=== PATIENT | male | born 1935 | race Caucasian/White ===

== ENCOUNTER 2017-02-07 20:23 | Emergency (ER) | payer MEDICARE, OTHER ==
[2017-02-07] MEDS: ONDANSETRON HCL 4 MG TAB.RAPDIS PO PRN (21:13)
[2017-02-07] MEDS ORDERED: ONDANSETRON HCL 4 MG TAB.RAPDIS ONE ×2 (21:15→22:20)
[2017-02-07 21:33] LABS: BASOPHILS % 0.6 (0.0-1.5); MEAN CORPUSCULAR HEMOGLOBIN 28.2 pg (28.0-34.0); MEAN CORPUSCULAR VOLUME 83.9 fl (80.0-100.0); MONOCYTES % 4.9 % (0.0-11.0); NEUTROPHILS # 4.6 # k/uL (1.4-7.7)
[2017-02-07 21:46] LABS: eGFR (African) > 60; eGFR (Non-African) > 60
[2017-02-07] MEDS ORDERED: ONDANSETRON HCL 4 MG TAB.RAPDIS PO PRN (22:11)
--- NOTE | 2017-02-07 22:15 | ED Physician Documentation ---
Nausea/Vomiting/Diarrhea - HISTORIAN Historian: patient - HPI Chief Complaint: Nausea,Vomiting,Diarrhea Onset: other (last noc) Duration: constant Timing: still present Severity: moderate - Associated Symptoms Vomiting: mild (once) Diarrhea: denies: mild, mucous, watery, bloody Abdominal Pain: denies: cramping, burning - ROS CONST: none. denies: fever, chills - PAST HX Past History: peptic ulcer (has been stressed). denies: diabetes Type 2 Surgeries/Procedures: other (endcarotidectomy) Allergies/Adverse Reactions: Allergies Allergy/AdvReac Type Severity Reaction Status Date / Time No Known Allergies Allergy Verified 02/07/17 20:55 Home Medications: Ambulatory Orders Medication Instructions Recorded Finasteride [Proscar] 5 mg PO HS 06/06/15 Nitroglycerin 0.4 mg SL u2 06/12/15 Ondansetron HCl Rapdis [Zofran Odt] 4 mg PO Q6 PRN #10 tab 02/07/17 - SOCIAL HX Smoking History: non-smoker Alcohol Use: none Drug Use: none - FAMILY HX Family History: none - VITAL SIGNS Vital Signs: Vital Signs Temp Pulse Resp BP Pulse Ox 98.8 F 65 16 146/63 98 02/07/17 20:30 02/07/17 20:30 02/07/17 20:30 02/07/17 20:30 02/07/17 20:30 - REVIEWED ASSESSMENTS Nursing Assessment Reviewed: Yes Vitals Reviewed: Yes ED Results Lab/Radiology - Lab Results Lab Results: Lab Results 02/07/17 02/07/17 21:25 21:25 WBC 8.20 K/ul K/ul (4.00-12.00) RBC 4.59 M/ul M/ul (3.90-5.20) Hgb 12.9 g/dL g/dL (12.0-18.0) Hct 38.5 % % (37.0-53.0) MCV 83.9 fl fl (80.0-100.0) MCH 28.2 pg pg (28.0-34.0) MCHC 33.6 g/dL g/dL (30.0-36.0) RDW 14.7 % H % (11.3-14.3) Plt Count 292 K/mm3 K/mm3 (130-400) Neut % (Auto) 56.7 % % (39.0-79.0) Lymph % (Auto) 29.9 % % (16.0-50.0) [place] % (Auto) 4.9 % % (0.0-11.0) Eos % (Auto) 5.0 % % (0.0-6.8) Baso % (Auto) 0.6 (0.0-1.5) Neut # 4.6 # k/uL # k/uL (1.4-7.7) Lymph # 2.4 # k/uL # k/uL (0.6-4.0) [place] # 0.4 # k/uL # k/uL (0.0-0.9) Eos # 0.4 # k/uL # k/uL (0.0-0.6) Baso # 0.0 # k/uL # k/uL (0.0-0.5) Reactive Lymphs % 2.9 % % (0.0-5.0) Reactive Lymphs # 0.2 # k/uL # k/uL (0.0-0.8) Sodium 143 mmol/L mmol/L (136-145) Potassium 4.1 mmol/L mmol/L (3.5-5.0) Chloride 107 mmol/L mmol/L (98-110) Carbon Dioxide 30 mmol/L mmol/L (20-32) BUN 15 mg/dL mg/dL (10-26) Creatinine 1.0 mg/dL mg/dL (0.4-1.5) Estimated Creat Clear 63 Est GFR ( Amer) > 60 (60 - ) Est GFR (Non-Af Amer) > 60 (60 - ) Glucose 103 mg/dL H mg/dL (70-99) Calcium 9.8 mg/dL mg/dL (8.5-10.5) Total Bilirubin 0.6 mg/dL mg/dL (0.2-1.2) AST 15 U/L U/L (0-41) ALT 10 U/L U/L (0-45) Alkaline Phosphatase 89 U/L U/L (46-116) Total Protein 6.6 g/dL g/dL (6.0-8.5) Albumin 4.3 g/dL g/dL (3.0-5.5) - Orders Orders: ED Orders Category Date Time Status CBC/PLATELET/DIFF Routine Lab 02/07/17 21:25 Completed CMP Routine Lab 02/07/17 21:25 Completed URINALYSIS Routine Lab 02/07/17 Uncollected Ondansetron HCl Rapdis [Zofran Odt] Med 02/07/17 21:11 Ordered 4 mg PO Q6H PRN Ondansetron HCl Rapdis [Zofran Odt] Med 02/07/17 22:11 Ordered 8 mg PO TAKE HOME PRN Nausea Physical Exam - EXAM General Appearance: alert, mild distress Neck: normal inspection, thyroid normal, supple. No: lymphadenopathy, stiff neck Respiratory: no resp distress, chest non-tender, breath sounds normal. No: wheezes, rales, rhonchi CVS: reg rate & rhythm, heart sounds normal, equal pulses, no murmur, no gallop , PMI nml Abdomen: no organomegaly, tenderness (mild epigastric pain). No: guarding, rebound, abnml bowel sounds Skin: warm/dry, normal color. No: cyanosis Neuro/Psych: oriented X3, cognition normal, disoriented Discharge Clincal Impression: Dyspepsia Prescriptions: Ondansetron HCl Rapdis [Zofran Odt] 4 mg PO Q6 PRN #10 tab PRN Reason: Nausea / Vomiting Referrals: Demarco Lau MD [Primary Care Provider] - 2 Days Additional Instructions: For one week increase your pantoprazole to 40mg twice a day. Take Zofran as needed for nausea. Watch for blood in stool or vomit. If not doing better in several days to see Dr Lau. Home Medications: Ambulatory Orders Finasteride [Proscar] 5 mg PO HS 06/06/15 Nitroglycerin 0.4 mg SL u2 06/12/15 Ondansetron HCl Rapdis [Zofran Odt] 4 mg PO Q6 PRN #10 tab 02/07/17 Disposition: 01 HOME, SELF-CARE Decision to Admit: NO Date of Decison to Admit: 02/07/17 Decision Time: 22:09
[2017-02-07 22:27] VITALS: BP 133/66
[2017-02-08 05:31] LABS: OCCULT BLOOD,URINE NEGATIVE (NEGATIVE)
== END 2017-02-07 22:20 | disposition home or self-care (01) ==
LOC: ED 20:23
DX: R10.13 Epigastric pain (principal)
CPT/HCPCS: 80053; 81002; 85025; A9270; 99283

== ENCOUNTER 2017-03-12 19:37 | Emergency (ER) | payer MEDICARE, OTHER ==
--- NOTE | 2017-03-12 19:48 | ED Physician Documentation ---
Upper Extremity Problem - HISTORIAN Historian: patient, spouse - HPI Chief Complaint: Upper Extremity Problem Additional Information: insect bite flexor surface rt wrist this am while picking blackberries Timing: worse (redness slight swelling slight tenderness) Severity: mild, moderate Associated Symptoms: denies: fever, chills, sweating, shortness of breath, difficulty breathing, chest pain, chest discomfort, nausea Exacerbated By: other (movement wrist and pressure-lesion continues to spread slightly) - ROS CONST: no problems EYES/ENT: denies: problems with vision CVS/RESP: none. denies: chest pain, shortness of breath, palpitations, cough GI/: denies: abdominal pain - PAST HX Past History: diabetes Type 1 Other History: hypertension Surgeries/Procedures: other (hernia) Allergies/Adverse Reactions: Allergies Allergy/AdvReac Type Severity Reaction Status Date / Time No Known Allergies Allergy Verified 02/07/17 20:55 Home Medications: Ambulatory Orders Medication Instructions Recorded Finasteride [Proscar] 5 mg PO HS 06/06/15 Nitroglycerin 0.4 mg SL u2 06/12/15 Ondansetron HCl Rapdis [Zofran Odt] 4 mg PO Q6 PRN #10 tab 02/07/17 - SOCIAL HX Smoking History: non-smoker Alcohol Use: none Drug Use: none - FAMILY HX Family History: no significant history - VITAL SIGNS Vital Signs: Vital Signs Temp Pulse Resp BP Pulse Ox 133/66 02/07/17 22:20 - REVIEWED ASSESSMENTS Nursing Assessment Reviewed: Yes Vitals Reviewed: Yes Upper Extremity Problem - EXAM General Appearance: mild distress Skin: warm/dry, normal color. No: cyanosis, diaphoresis, jaundice Shoulder Exam: normal inspection Elbow/Forearm Exam: normal inspection Hand Exam: swelling (slight redness and swelling dorsum) Neuro/Tendon: normal sensation CVS: reg rate & rhythm, heart sounds normal, equal pulses, no murmur. No: tachycardia Vascular: No: no vascular compromise, abnml capillary refill, pulse deficit Peripheral: sensation nml. No: altered sensation Central: oriented X3, CN's nml as tested, motor nml, sensation nml, mood/affect nml, cognition normal Respiratory: no resp. distress Abdomen: non-tender Discharge Clincal Impression: bee sting Referrals: Demarco Lau MD [Primary Care Provider] - 2 Days Home Medications: Ambulatory Orders Finasteride [Proscar] 5 mg PO HS 06/06/15 Nitroglycerin 0.4 mg SL u2 06/12/15 Ondansetron HCl Rapdis [Zofran Odt] 4 mg PO Q6 PRN #10 tab 02/07/17 Condition: Good Disposition: 01 HOME, SELF-CARE Decision to Admit: NO Decision Time: 19:47
[2017-03-12] MEDS ORDERED: MAG HYDROX/AL HYDROX/SIMETH 30 ML, Lidocaine 2%Visc 15ml 20 MG, PHENobarb/HYOSCY/ATROPI... PO ONE ×3 (20:00)
[2017-03-12] MEDS ORDERED: MAG HYDROX/AL HYDROX/SIMETH 30 ML UDC PO ONE (20:21)
[2017-03-12] MEDS ORDERED: Lidocaine 2%Visc 15ml 20 MG/ML UDC ONE (20:21)
[2017-03-12 20:22] LABS: BASOPHILS % 0.4 (0.0-1.5); EOSINOPHILS % 2.1 % (0.0-6.8); MEAN CORPUSCULAR HEMOGLOBIN 27.3 pg (28.0-34.0); MEAN CORPUSCULAR VOLUME 84.4 fl (80.0-100.0); MONOCYTES % 3.6 % (0.0-11.0)
[2017-03-12 20:31] LABS: eGFR (African) > 60; eGFR (Non-African) > 60
[2017-03-12] MEDS ORDERED: FAMOTIDINE 20 MG TABLET PO ONE (21:27)
--- NOTE | 2017-03-12 21:38 | ED Physician Documentation ---
Abdominal Pain - HISTORIAN Historian: patient, spouse - HPI Chief Complaint: Abdominal Pain Additonal Information: acute mid abd pain rad straight through to back. onset approx noon after ate chicken approx 30 min prior. had food poisioning few yrs ago "feels just like that". no nausea or diarrhea normal bm earlier today no constipation Onset: minutes (noon) Duration: waxing, waning Timing: worse Context: bad food (possibly chicken). denies: out of country travel Severity: moderate Quality: pain, dull, cramping, sharp Associated Symptoms: none - ROS CONST: no problems GI/: none CVS/RESP: none EYES/ENT: none MS/SKIN/LYMPH: none NEURO/PSYCH: none - SOCIAL HX Smoking History: non-smoker Alcohol Use: none Drug Use: none - FAMILY HX Family History: no significant history - PAST HX Past History: none, diverticulitis Surgeries/Procedures: other (iong hernia) Home Medications: Ambulatory Orders Medication Instructions Recorded Finasteride [Proscar] 5 mg PO HS 06/06/15 Nitroglycerin 0.4 mg SL Q15MIN PRN u2 06/12/15 Ondansetron HCl Rapdis [Zofran Odt] 4 mg PO Q6 PRN #10 tab 02/07/17 Allergies/Adverse Reactions: Allergies Allergy/AdvReac Type Severity Reaction Status Date / Time No Known Allergies Allergy Verified 03/12/17 19:54 - VITAL SIGNS Vital Signs: Vital Signs Temp Pulse Resp BP Pulse Ox 100.0 F H 73 16 144/67 95 03/12/17 19:40 03/12/17 19:40 03/12/17 19:40 03/12/17 19:40 03/12/17 19:40 - REVIEWED ASSESSMENTS Nursing Assessment Reviewed: Yes Vitals Reviewed: Yes ED Results Lab/Radiology - Lab Results Lab Results: Lab Results 03/12/17 03/12/17 19:52 19:52 WBC 11.43 K/ul K/ul (4.00-12.00) RBC 5.04 M/ul M/ul (3.90-5.20) Hgb 13.7 g/dL g/dL (12.0-18.0) Hct 42.5 % % (37.0-53.0) MCV 84.4 fl fl (80.0-100.0) MCH 27.3 pg L pg (28.0-34.0) MCHC 32.3 g/dL g/dL (30.0-36.0) RDW 14.5 % H % (11.3-14.3) Plt Count 339 K/mm3 K/mm3 (130-400) Neut % (Auto) 78.4 % % (39.0-79.0) Lymph % (Auto) 14.0 % L % (16.0-50.0) [place] % (Auto) 3.6 % % (0.0-11.0) Eos % (Auto) 2.1 % % (0.0-6.8) Baso % (Auto) 0.4 (0.0-1.5) Neut # (Auto) 9.0 # k/uL H # k/uL (1.4-7.7) Lymph # (Auto) 1.6 # k/uL # k/uL (0.6-4.0) [place] # (Auto) 0.4 # k/uL # k/uL (0.0-0.9) Eos # (Auto) 0.2 # k/uL # k/uL (0.0-0.6) Baso # (Auto) 0.5 # k/uL # k/uL (0.0-0.5) Reactive Lymphs % 1.5 % % (0.0-5.0) Reactive Lymphs # 0.2 # k/uL # k/uL (0.0-0.8) Carbon Dioxide 38 mmol/L H mmol/L (20-32) BUN 13 mg/dL mg/dL (10-26) Creatinine 1.1 mg/dL mg/dL (0.4-1.5) Estimated Creat Clear 55 Est GFR ( Amer) > 60 (60 - ) Est GFR (Non-Af Amer) > 60 (60 - ) Glucose 114 mg/dL H mg/dL (70-99) Calcium 9.9 mg/dL mg/dL (8.5-10.5) Total Bilirubin 0.6 mg/dL mg/dL (0.2-1.2) AST 13 U/L U/L (0-41) ALT 10 U/L U/L (0-45) Alkaline Phosphatase 92 U/L U/L (46-116) Total Protein 7.0 g/dL g/dL (6.0-8.5) Albumin 4.5 g/dL g/dL (3.0-5.5) Amylase 55 U/L U/L (20-104) - Orders Orders: ED Orders Category Date Time Status AMYLASE Routine Lab 03/12/17 19:52 Completed CBC/PLATELET/DIFF Routine Lab 03/12/17 19:52 Completed CMP [CMP] Routine Lab 03/12/17 19:52 Completed URINALYSIS Routine Lab 03/12/17 Ordered Famotidine [Pepcid] Med 03/12/17 21:27 Discontinued 20 mg PO NOW ONE Lidocaine 2%Visc 15ml [Xylocaine] Med 03/12/17 20:21 Discontinued 600 mg .ROUTE .STK-MED ONE Mag Hydrox/Al Hydrox/Simeth [Mylanta] Med 03/12/17 20:21 Discontinued 30 ml PO .STK-MED ONE Mag Hydrox/Al Hydrox/Simeth [Mylanta] 30 ml Med 03/12/17 20:00 Discontinued Lidocaine 2%Visc 15ml [Xylocaine] 20 mg PHENobarb/HYOSCY/ATROPINE/SCOP [] 10 ml PO NOW EKG WITH COMPARISON Stat Ther 03/12/17 Ordered Abdominal Pain Physical Exam - Physical Exam General Appearance: moderate distress EENT: eye inspection normal NECK: normal inspection RESPIRATORY: no resp distress, chest non-tender, breath sounds normal CVS: reg rate & rhythm, heart sounds normal ABDOMEN: soft, tenderness, increased BS. No: rigid BACK: normal inspection SKIN: warm/dry, normal color. No: cyanosis, diaphoresis, jaundice, mottled NEURO: sensation nml, mood/affect nml Vital Signs: Vital Signs Temp Pulse Resp BP Pulse Ox 100.0 F H 73 16 144/67 95 03/12/17 19:40 03/12/17 19:40 03/12/17 19:40 03/12/17 19:40 03/12/17 19:40 Discharge Clincal Impression: bee sting, un dx abdominal pain, suspec peptic acid disease Referrals: Demarco Lau MD [Primary Care Provider] - 2 Days Home Medications: Ambulatory Orders Finasteride [Proscar] 5 mg PO HS 06/06/15 Nitroglycerin 0.4 mg SL Q15MIN PRN u2 06/12/15 Ondansetron HCl Rapdis [Zofran Odt] 4 mg PO Q6 PRN #10 tab 02/07/17 Comments: note that the bee sting was an error dx-it should have been on another patient Condition: Good Disposition: 01 HOME, SELF-CARE Decision to Admit: NO Decision Time: 21:33
[2017-03-12 21:47] VITALS: BP 139/73
[2017-03-13 05:31] LABS: APPEARANCE,URINE CLEAR (CLEAR); COLOR,URINE YELLOW (YELLOW); OCCULT BLOOD,URINE NEGATIVE (NEGATIVE); PH URINE 5.5 (5.0 - 8.0)
== END 2017-03-12 21:45 | disposition home or self-care (01) ==
LOC: ED 19:37
DX: R10.9 Unspecified abdominal pain (principal); W57.XXXA Bitten or stung by nonvenomous insect and other nonvenomous arthropods, initial encounter
CPT/HCPCS: 80053; 81002; 82150; 85025; A9270; 99283; S1016

== ENCOUNTER 2017-05-25 15:22 | Outpatient (CLI) | payer MEDICARE, OTHER | END 2017-05-25 15:23 | LOC: LAB 15:22 | PROVIDERS: ATTEND Family Medicine | DX: R63.4 Abnormal weight loss (principal) | CPT/HCPCS: 36415; 84443 ==

== ENCOUNTER 2017-09-29 11:11 | Outpatient (CLI) | payer MEDICARE, OTHER | END 2017-09-29 11:12 | LOC: CARD 11:11 | PROVIDERS: ATTEND Internal Medicine Cardiovascular Disease | DX: I25.10 Atherosclerotic heart disease of native coronary artery without angina pectoris (principal); I10 Essential (primary) hypertension; E78.5 Hyperlipidemia, unspecified | CPT/HCPCS: G0463 ==

== ENCOUNTER 2017-11-17 13:06 | Outpatient (CLI) | payer MEDICARE, OTHER | END 2017-11-17 14:00 | LOC: CARD 13:06 | PROVIDERS: ATTEND Internal Medicine Cardiovascular Disease | DX: I25.10 Atherosclerotic heart disease of native coronary artery without angina pectoris (principal); R07.9 Chest pain, unspecified; I10 Essential (primary) hypertension; E78.5 Hyperlipidemia, unspecified; Z01.810 Encounter for preprocedural cardiovascular examination | CPT/HCPCS: G0463 ==

== ENCOUNTER 2017-12-15 12:19 | Outpatient (CLI) | payer MEDICARE, OTHER | END 2017-12-15 12:20 | LOC: CARD 12:19 | PROVIDERS: ATTEND Internal Medicine Cardiovascular Disease | DX: I25.10 Atherosclerotic heart disease of native coronary artery without angina pectoris (principal); I48.91 Unspecified atrial fibrillation; R07.9 Chest pain, unspecified; I10 Essential (primary) hypertension; E78.5 Hyperlipidemia, unspecified | CPT/HCPCS: G0463 ==

== ENCOUNTER 2018-02-23 13:52 | Outpatient (CLI) | payer MEDICARE, OTHER ==
[2018-02-23 15:10] LABS: BASOPHILS % 0.5 (0.0-1.5); EOSINOPHILS % 5.4 % (0.0-6.8); MEAN CORPUSCULAR HEMOGLOBIN 26.9 pg (28.0-34.0); MEAN CORPUSCULAR VOLUME 87.2 fl (80.0-100.0); MONOCYTES % 4.8 % (0.0-11.0); NEUTROPHILS # 4.6 # k/uL (1.4-7.7)
== END 2018-02-23 13:53 ==
LOC: CARD 13:52
PROVIDERS: ATTEND Internal Medicine Cardiovascular Disease
DX: I25.10 Atherosclerotic heart disease of native coronary artery without angina pectoris (principal); I48.91 Unspecified atrial fibrillation; R53.83 Other fatigue; I10 Essential (primary) hypertension; E78.5 Hyperlipidemia, unspecified
CPT/HCPCS: 36415; 84443; 85025; G0463

== ENCOUNTER 2018-04-14 12:39 | Outpatient (CLI) | payer MEDICARE, OTHER ==
[2018-04-14 13:01] LABS: BASOPHILS % 0.3 (0.0-1.5); EOSINOPHILS % 3.6 % (0.0-6.8); MEAN CORPUSCULAR HEMOGLOBIN 27.3 pg (28.0-34.0); MEAN CORPUSCULAR VOLUME 86.8 fl (80.0-100.0); NEUTROPHILS # 4.6 # k/uL (1.4-7.7)
== END 2018-04-14 12:40 ==
LOC: LAB 12:39
PROVIDERS: ATTEND Family Medicine
DX: K92.1 Melena (principal)
CPT/HCPCS: 36415; 85025

== ENCOUNTER 2018-04-16 08:55 | Outpatient (CLI) | payer MEDICARE, OTHER ==
[2018-04-16 17:51] LABS: BASO % 0.5 % (0.0-1.5); EOS % 6.7 % (0.0-6.8); MCH. 26.8 pg (28.0-34.0); MCV 84.9 fL (80.0-100.0); MONOCYTE % 7.3 % (0.0-11.0); MONOCYTE ABS # 0.58 thou/uL (0.00-0.90); PLATELET COUNT 438 thou/uL (130-400)
== END 2018-04-16 08:56 ==
LOC: LAB 08:55
PROVIDERS: ATTEND Family Medicine
DX: K92.1 Melena (principal)
CPT/HCPCS: 85025

== ENCOUNTER 2018-04-22 07:43 | Outpatient (CLI) | payer MEDICARE, OTHER ==
[2018-04-22 08:26] LABS: BASOPHILS % 0.7 (0.0-1.5); EOSINOPHILS % 5.8 % (0.0-6.8); MEAN CORPUSCULAR HEMOGLOBIN 25.7 pg (28.0-34.0); MEAN CORPUSCULAR VOLUME 83.2 fl (80.0-100.0); MONOCYTES % 4.1 % (0.0-11.0); NEUTROPHILS # 3.4 # k/uL (1.4-7.7)
== END 2018-04-22 07:44 ==
LOC: LAB 07:43
PROVIDERS: ATTEND Family Medicine
DX: E78.5 Hyperlipidemia, unspecified (principal); D64.9 Anemia, unspecified
CPT/HCPCS: 36415; 80061; 85025

== ENCOUNTER 2018-05-05 13:26 | Outpatient (CLI) | payer MEDICARE, OTHER ==
[2018-05-05 13:49] LABS: BASOPHILS % 0.6 (0.0-1.5); EOSINOPHILS % 5.4 % (0.0-6.8); MEAN CORPUSCULAR HEMOGLOBIN 24.8 pg (28.0-34.0); MEAN CORPUSCULAR VOLUME 82.5 fl (80.0-100.0); MONOCYTES % 7.5 % (0.0-11.0); NEUTROPHILS # 4.3 # k/uL (1.4-7.7)
== END 2018-05-05 13:28 ==
LOC: LAB 13:26
PROVIDERS: ATTEND Family Medicine
DX: D64.9 Anemia, unspecified (principal)
CPT/HCPCS: 36415; 85025

== ENCOUNTER 2018-05-18 11:32 | Outpatient (CLI) | payer MEDICARE, OTHER | END 2018-05-18 11:33 | LOC: CARD 11:32 | PROVIDERS: ATTEND Internal Medicine Cardiovascular Disease | DX: I25.10 Atherosclerotic heart disease of native coronary artery without angina pectoris (principal); I48.91 Unspecified atrial fibrillation; R53.83 Other fatigue; I10 Essential (primary) hypertension; E78.5 Hyperlipidemia, unspecified | CPT/HCPCS: G0463 ==

== ENCOUNTER 2018-06-01 09:24 | Outpatient (CLI) | payer MEDICARE, OTHER ==
[2018-06-01 19:01] LABS: BASO % 0.7 % (0.0-1.5); EOS % 2.3 % (0.0-6.8); LYMPH ABS # 1.86 thou/uL (0.60-4.00); MCH. 23.3 pg (28.0-34.0); MCV 78.5 fL (80.0-100.0); MONOCYTE % 5.5 % (0.0-11.0); MONOCYTE ABS # 0.4 thou/uL (0.00-0.90)
== END 2018-06-01 09:26 ==
LOC: LAB 09:24
PROVIDERS: ATTEND Family Medicine
DX: D64.9 Anemia, unspecified (principal)
CPT/HCPCS: 36415; 85025

== ENCOUNTER 2018-12-17 10:16 | Outpatient (CLI) | payer MEDICARE, OTHER ==
[2018-12-17 10:57] LABS: MEAN CORPUSCULAR HEMOGLOBIN 20.8 pg (28.0-34.0)
[2018-12-17 10:58] LABS: BASOPHILS % 0.5 % (0.0-1.5); EOSINOPHILS % 3.9 % (0.0-6.8); MONOCYTES % 6.4 % (0.0-11.0); NEUTROPHILS # 5.7 # k/uL (1.4-7.7)
[2018-12-17 11:07] LABS: eGFR (Non-African) > 60
== END 2018-12-17 10:30 ==
LOC: LAB 10:16
PROVIDERS: ATTEND Family Medicine
DX: D64.9 Anemia, unspecified (principal); I10 Essential (primary) hypertension; N40.1 Benign prostatic hyperplasia with lower urinary tract symptoms
CPT/HCPCS: 36415; 80053; 84153; 85025

== ENCOUNTER 2018-12-22 23:01 | Emergency (ER) | payer MEDICARE, OTHER ==
--- NOTE | 2018-12-22 23:31 | ED Physician Documentation ---
General Adult - HISTORIAN Historian: patient - HPI Stated Complaint: Nausea, Vomiting, abdominal pain. Chief Complaint: General Adult Additional Information: Patient presents to ER with nausea, vomiting and epigastric pain starting around 1400 today. Patient states he ate a small amount of dinner, however, was not able to keep it down. He denies fever, chills or hematemesis. Last bowel movement was tonight. He was started on iron pills twice daily on Thursday by Dr. Lau. Onset: hours (8) Timing: still present Severity: mild - ROS CONST: denies: fever, recent illness EYES/ENT: none CVS/RESP: denies: chest pain, shortness of breath GI/: abdominal pain (epigastric ), vomiting, nausea MS/SKIN/LYMPH: none NEURO/PSYCH: denies: headache - PAST HX Past History: other (CAD) Other History: peptic ulcer Surgeries/Procedures: cardiac bypass Allergies/Adverse Reactions: Allergies Allergy/AdvReac Type Severity Reaction Status Date / Time meperidine HCl Allergy Verified 12/22/18 23:21 Home Medications: Ambulatory Orders Medication Instructions Recorded Finasteride [Proscar] 5 mg PO HS 06/06/15 Ondansetron HCl Rapdis [Zofran Odt] 4 mg PO Q8 PRN #30 tab 12/23/18 - SOCIAL HX Smoking History: non-smoker Alcohol Use: none Drug Use: none - FAMILY HX Family History: No - VITAL SIGNS Vital Signs: Vital Signs Temp Pulse Resp BP Pulse Ox 98.7 F 70 16 168/69 98 12/22/18 23:03 12/22/18 23:03 12/22/18 23:03 12/22/18 23:03 12/22/18 23:03 - REVIEWED ASSESSMENTS Nursing Assessment Reviewed: Yes Vitals Reviewed: Yes ED Results Lab/Radiology - Orders Orders: ED Orders Category Date Time Status Place IV Lock 1T Care 12/22/18 23:26 Ordered Ondansetron HCl/Pf [Zofran] Med 12/22/18 23:26 Once 4 mg IVP NOW ONE fentaNYL CITRATE/PF [Sublimaze] Med 12/22/18 23:27 Once 25 mcg IV NOW ONE General Adult Physical Exam - PHYSICAL EXAM GENERAL APPEARANCE: no distress EENT: K[place] NECK: supple RESPIRATORY: no resp distress, chest non-tender, breath sounds normal CVS: reg rate & rhythm, heart sounds normal ABDOMEN: soft, normal bowel sounds, tenderness (epigastric) BACK: normal inspection SKIN: warm/dry, normal color EXTREMITIES: non-tender, no edema NEURO: oriented X3, motor nml Discharge Clincal Impression: Nausea and vomiting in adult Prescriptions: Ondansetron HCl Rapdis [Zofran Odt] 4 mg PO Q8 PRN #30 tab PRN Reason: nausea/vomiting Referrals: Demarco Lau MD [Primary Care Provider] - 2 Days Additional Instructions: 1. Stop taking Iron pills 2. Take Zofran as needed for nausea/vomiting 3. Follow up with Dr. Lau within 1 week. Discuss possible IV iron treatment 4. Return to ER for new or worsening symptoms Condition: Stable Disposition: 01 HOME, SELF-CARE Decision to Admit: NO Date of Decison to Admit: 12/23/18 Decision Time: 00:14
[2018-12-22] MEDS: ONDANSETRON HCL/PF 4 MG/ 2ML VIAL IVP ONE (23:44)
[2018-12-22] MEDS: fentaNYL CITRATE/PF 100 MCG/2 ML INJ. IV ONE ×2 (23:44→23:47)
[2018-12-22 23:55] VITALS: BP 145/64
== END 2018-12-23 00:26 | disposition home or self-care (01) ==
LOC: ED 23:01
DX: R11.2 Nausea with vomiting, unspecified (principal)
CPT/HCPCS: 96374; 96375; 99283; 99284; J2405; J3010; S1016

== ENCOUNTER 2019-01-18 09:50 | Outpatient (CLI) | payer MEDICARE, OTHER ==
[2019-01-18] MEDS ORDERED: IRON SUCROSE COMPLEX 20 MG/ML 5ML VIAL IV ONE (10:03)
[2019-01-18] MEDS ORDERED: 0.9 % SODIUM CHLORIDE 100 ML IV ONE (10:03)
== END 2019-01-18 09:53 ==
LOC: INF 09:50
PROVIDERS: ATTEND Family Medicine
DX: D50.9 Iron deficiency anemia, unspecified (principal)
CPT/HCPCS: 96365; J1756

== ENCOUNTER 2019-01-21 09:39 | Outpatient (CLI) | payer MEDICARE, OTHER ==
[2019-01-21] MEDS ORDERED: IRON SUCROSE COMPLEX 20 MG/ML 5ML VIAL IV ONE (10:03)
[2019-01-21] MEDS ORDERED: 0.9 % SODIUM CHLORIDE 100 ML IV ONE (10:03)
== END 2019-01-21 10:48 | disposition home or self-care (01) ==
LOC: LAB 09:39 → INF 10:48
PROVIDERS: ATTEND Family Medicine
DX: D50.9 Iron deficiency anemia, unspecified (principal)
CPT/HCPCS: 96365; J1756

== ENCOUNTER 2019-01-25 09:51 | Outpatient (CLI) | payer MEDICARE, OTHER ==
[2019-01-25] MEDS ORDERED: 0.9 % SODIUM CHLORIDE 100 ML IV ONE (10:06)
[2019-01-25] MEDS ORDERED: IRON SUCROSE COMPLEX 20 MG/ML 5ML VIAL IV ONE (10:06)
== END 2019-01-25 11:10 | disposition home or self-care (01) ==
LOC: INF 09:51
PROVIDERS: ATTEND Family Medicine
DX: D50.9 Iron deficiency anemia, unspecified (principal)
CPT/HCPCS: 96365; J1756

== ENCOUNTER 2019-02-04 08:05 | Outpatient (CLI) | payer MEDICARE, OTHER ==
[2019-03-09 11:30] LABS: BASOPHILS % 0.4 % (0.0-1.5); NEUTROPHILS # 6.1 # k/uL (1.4-7.7)
== END 2019-02-04 08:10 | disposition home or self-care (01) ==
LOC: LAB 08:05
PROVIDERS: ATTEND Family Medicine
DX: D50.0 Iron deficiency anemia secondary to blood loss (chronic) (principal)
CPT/HCPCS: 36415; 83540; 85025

== ENCOUNTER 2019-04-26 13:53 | Outpatient (CLI) | payer MEDICARE, OTHER ==
--- NOTE | 2019-04-26 14:30 | Diagnostic Imaging Report ---
CHAITANYA SALINAS [facility] [address] [facility] [address] [address] Report Submission Date: Apr 26, 2019 2:26:54 PM CDT Patient Study Name: CASTRO GRAHAM Date: Apr 26, 2019 1:53:42 PM CDT Modality Type: DX Gender: M Description: CHEST 2VIEW : 37 Institution: [facility] Physician: CHAITANYA SALINAS Exam: Chest two views. History: Cough and congestion. No previous studies are available for comparison. Lung victor are well aerated without tony consolidation or effusion. Heart size is normal with atherosclerotic plaques seen in the aorta. Sternotomy wires indicate previous thoracotomy. Degenerative changes in the thoracic spine are seen. Impression: No tony consolidation or effusion. Electronically signed on Apr 26, 2019 2:26:54 PM CDT by: Elias DURAN
--- NOTE | 2019-04-26 14:45 | Diagnostic Imaging Report ---
CHAITANYA SALINAS [facility] [address] [facility] [address] [address] Report Submission Date: Apr 26, 2019 2:36:17 PM CDT Patient Study Name: CASTRO GRAHAM Date: Apr 26, 2019 1:53:42 PM CDT Modality Type: DX Gender: M Description: L SPINE 2 OR 3 VIEWS : 37 Institution: [facility] Physician: CHAITANYA SALINAS Lumbar spine History: Back pain status post fall AP and lateral projections of the lumbar spine were obtained. Bones are osteopenic. There is multilevel facet arthropathy. There is a grade 1 anterolisthesis of L4 relative to L5 measured at 4 mm. Better noted on these lumbar radiographs than on the thoracic radiographs, there is anterior wedging at T12 which is age indeterminate. There is an estimated 30% loss of vertebral body. Vertebral body height is maintained throughout the lumbar spine. Aortoiliac atherosclerosis is present. Impression: Osteopenia and degenerative findings as described. Age indeterminate anterior compression deformity of T12 with an estimated 30% loss of vertebral body height. MRI could be obtained for further assessment. Electronically signed on Apr 26, 2019 2:36:17 PM CDT by: Sharon DURAN
--- NOTE | 2019-04-26 14:46 | Diagnostic Imaging Report ---
CHAITANYA SALINAS [facility] [address] [address] Report Submission Date: Apr 26, 2019 2:34:05 PM CDT Patient Study Name: CASTRO GRAHAM Date: Apr 26, 2019 1:53:42 PM CDT Modality Type: DX Gender: M Description: T SPINE 3 VIEWS : 37 Institution: [facility] Physician: CHAITANYA SALINAS Thoracic spine History: Pain status post fall AP, lateral and swimmer's views of the thoracic spine were obtained which demonstrate multilevel, flowing anterior and lateral marginal osteophytes consistent with diffuse idiopathic skeletal hyperostosis. Vertebral body height and intervertebral disc space height is maintained. Bones are osteopenic. Aortic atherosclerosis is present. Impression: Findings consistent with diffuse idiopathic skeletal hyperostosis. No acute osseous abnormality. Electronically signed on Apr 26, 2019 2:34:05 PM CDT by: Sharon DURAN
--- NOTE | 2019-04-26 14:46 | Diagnostic Imaging Report ---
CHAITANYA SALINAS [facility] [address] [facility] [address] Report Submission Date: Apr 26, 2019 2:38:53 PM CDT Patient Study Name: CASTRO GRAHAM Date: Apr 26, 2019 1:53:42 PM CDT Modality Type: DX Gender: M Description: RIBS UNILAT 2 VIEWS : 37 Institution: [facility] Physician: CHAITANYA SALINAS Unilateral right ribs History: Pain status post fall Three views of the right ribs were obtained which demonstrate no pneumothorax or pleural effusion. No acute right rib fracture is seen. Impression: No evidence for acute right rib fracture. No pneumothorax. Electronically signed on Apr 26, 2019 2:38:53 PM CDT by: Sharon DURAN
== END 2019-04-26 13:55 ==
LOC: RAD 13:53
PROVIDERS: ATTEND Nurse Practitioner Family
DX: R05 Cough (principal); M54.6 Pain in thoracic spine; R07.81 Pleurodynia; W19.XXXA Unspecified fall, initial encounter
CPT/HCPCS: 71046; 71100; 72072; 72100